=== PATIENT | male | born 1990 | race Hispanic/Latino ===

== ENCOUNTER 2018-02-14 18:43 | Emergency (ER) | payer OTHER ==
[~2018-02-14] VITALS: Ht 175.3 cm; Wt 65.8 kg
[2018-02-14] MEDS ORDERED: IBUPROFEN 400 MG TAB PO ONE (19:30)
--- NOTE | 2018-02-14 20:08 | Diagnostic Imaging Report ---
EXAMINATION: CHEST 2 VIEWS INDICATION: \S\ORDER PLACED BY \S\[id number] \S\1941 \S\Y COMPARISON: None FINDINGS: PA and lateral views TUBES and LINES: None. LUNGS: Lungs are well inflated. Dense nodule within the left upper paratracheal region may represent calcification of the costochondral junction or calcified granuloma. Few tiny dense nodules throughout the right lung suggestive of calcified granulomas. There is no evidence of pneumonia or pulmonary edema. PLEURA: No pleural effusion or pneumothorax. HEART AND MEDIASTINUM: The cardiomediastinal silhouette is unremarkable. BONES AND SOFT TISSUES: No acute osseous lesion. Soft tissues are unremarkable. UPPER ABDOMEN: No free air under the diaphragm. IMPRESSION: No acute thoracic abnormality. Signed by: Dr. Conchis Fernandez M.D. on 02/14/2018 8:04 PM
[2018-02-14 21:25] VITALS: BP 137/86
== END 2018-02-14 21:30 | disposition home or self-care (01) ==
LOC: ER 18:43
DX: R07.89 Other chest pain (principal); R07.1 Chest pain on breathing
CPT/HCPCS: 71046; 93005; 99283